=== PATIENT | male | born 1990 ===

== ENCOUNTER → 2018-10-14 | Outpatient (CLI) | payer OTHER ==
[~2018-10-14] MED LIST: FLU60VIA41 IM
[2018-10-14 10:31] LABS: PLATELET COUNT, AUTOMATED 267 K/uL (150-450)
[2018-10-14 10:55] LABS: LDL CHOLESTEROL 71 mg/dl
== END ==
LOC: LAB 10:15
PROVIDERS: ATTEND Internal Medicine
DX: Z00.00 Encounter for general adult medical examination without abnormal findings (principal); E66.9 Obesity, unspecified
CPT/HCPCS: 36415; 81001; 82040; 82247; 82310; 82374; 82435; 82465; 82565; 82947; 83718; 84075; 84132; 84155; 84295; 84443; 84450; 84460; 84478; 84520; 85025